=== PATIENT | male | born 1975 | race Caucasian/White ===

== ENCOUNTER 2022-06-27 15:16 | Emergency (ER) | payer OTHER, SELFPAY ==
[2022-06-27 15:27] VITALS: BP 106/90; PULSE 89; RESP 16; TEMP 36.5; O2SAT 99
--- NOTE | 2022-06-27 16:15 | ED.BACK ---
HPI - Back Pain/Injury General Chief Complaint: Back Pain/Injury Stated Complaint: Low back pain Time Seen by Provider: 06/27/22 16:15 Source: patient and RN notes reviewed Mode of arrival: ambulatory Limitations: no limitations History of Present Illness HPI Narrative: 46-year-old male presents to the [facility] with complaints of low back pain for the last 3 to 4 weeks. No treatment prior to arrival. States she does a lot of heavy lifting pushing and pulling. No direct trauma. No recent trauma to his back. Patient reports the pain has been going on for several weeks. No loss retention of bowel or bladder. No chest pain. No abdominal pain. Numbness and tingling in extremities. Related Data Allergies Allergy/AdvReac Type Severity Reaction Status Date / Time No Known Allergies Allergy Verified 06/27/22 16:19 Review of Systems Review of Systems: All systems reviewed & are unremarkable except as noted in HPI and below Constitutional: Constitutional: Reports no additional constitutional complaints, Denies chills and Denies fever(s) Eyes: Eyes: Reports no additional eye complaints ENT: Reports system reviewed and no additional complaints, except as documented Cardiovascular: Cardiovascular: Reports no additional cardiovascular complaints Respiratory: Respiratory: Reports no additional respiratory complaints Gastrointestinal: Gastrointestinal: Reports no additional gastrointestinal complaints Musculoskeletal: Musculoskeletal: Reports as per HPI and Reports back pain Integumentary/Breasts: Skin/Breast: Reports system reviewed and no additional complaints, except as docu Neurologic: Reports system reviewed and no additional complaints, except as documented Psychiatric: Psychiatric: Reports no additional psychiatric complaints Allergic/Immunologic: Allergic/Immunologic: Reports no additional allergic/immunologic complaints PMFSH Past Medical History Medical History (Updated 06/27/22 @ 19:55 by Amrita Anderson APRN) No significant medical problems Surgical History Surgical History (Updated 06/27/22 @ 19:55 by Amrita Anderson APRN) No pertinent past surgical history Social History Social History (Updated 06/27/22 @ 19:55 by Amrita Anderson APRN) Gender identity (if verbalized by the patient): Male Comments At the time of my signature, I reviewed and agree with the nursing past medical, surgical, social, and family history. There is no relevant family history pertinent to the patient complaint. Exam Const: General: healthy appearing, no acute distress and alert Nutritional Appearance: well nourished Orientation/consciousness: patient oriented x3 Limitations: no limitations HENMT: Head: normal to inspection Ears: external ears normal Eyes: General: appearance normal, both eyes and all related structures Pupils: Equal, round and reactive pupils present Neck: Neck: normal visual inspection, no lymphadenopathy and no meningeal signs Chest: Chest palpation & inspection: normal inspection of the chest Resp: Effort & Inspection: normal respiratory effort and no use of accessory muscles Auscultation: clear to auscultation bilaterally, no crackles, no rales, no rhonchi and no wheezes Cardio: Rate: regular rate Rhythm: regular rhythm GI: GI Palp: Yes Soft to palpation and No Tenderness to palpation present (GI) Back/Spine/Pelvis: Cervical Spine: normal cervical lordosis Thoracic/Lumbar Spine: thoracic and lumbar spine normal to inspection Back/spine/pelvis image: 1. Tenderness with movement. No bruising, swelling. No signs of infection, no rash. Tender with palpation throughout the entire mid lumbar area. Skin: General skin exam: normal color Rashes: no rashes Wounds: no wounds Neuro: General: patient oriented x3, moves all extremities, no meningeal signs and no focal motor deficits Cranial nerves: Yes Equal, round and reactive pupils present Speech: normal speech Gait exam (Neuro)
== END 2022-06-27 16:23 | disposition home or self-care (01) ==
PROVIDERS: Emergency Provider Nurse Practitioner
DX: S39.012A Strain of muscle, fascia and tendon of lower back, initial encounter (principal); X58.XXXA Exposure to other specified factors, initial encounter
CPT/HCPCS: 99213; G0463

== ENCOUNTER 2022-07-19 15:10 | Emergency (ER) | payer OTHER, SELFPAY ==
[2022-07-19 15:11] VITALS: BP 117/90; PULSE 111; RESP 18; TEMP 36.3; O2SAT 99
--- NOTE | 2022-07-19 15:56 | ED.BACK ---
HPI - Back Pain/Injury General Chief Complaint: Back Pain/Injury <ADAN Alba Last Filed: 07/19/22 18:05> Stated Complaint: Lower Back Pain <ADAN Alba Last Filed: 07/19/22 18:05> Time Seen by Provider: 07/19/22 15:29 <ADAN Alba Last Filed: 07/19/22 18:05> History of Present Illness HPI Narrative: Patient is a 46-year-old healthy male here for evaluation of acute on chronic left-sided low back pain for the past month. Patient states the pain is a dull ache, will occasionally radiate down his left leg. States the pain came on after he lifted a heavy furnace in his house. He was seen in an urgent care, was prescribed 800 mg ibuprofen with good relief of his pain. Patient states his prescription for this ran out, stopped taking it about 3 days ago, pain returned. He denies any saddle anesthesia, incontinence or retention of bowel or bladder, history of IV drug use, fevers. <ADAN Alba Last Filed: 07/19/22 18:05> Related Data Allergies/Adverse Reactions: Allergies Allergy/AdvReac Type Severity Reaction Status Date / Time No Known Allergies Allergy Verified 07/19/22 15:19 <ADAN Alba Last Filed: 07/19/22 18:05> Review of Systems Review of Systems: Gen: Denies fevers or chills Eyes: Denies eye pain or visual change ENT: Denies congestion Respiratory: Denies shortness of breath or cough CV: Denies chest pain or palpitations GI: Denies abdominal pain nausea, emesis or diarrhea : denies burning, urgency, frequency or hematuria Musculoskeletal: reports back pain. Neuro: Denies numbness, tingling, weakness or focal weakness Skin: Denies rash Except as documented, all other systems reviewed and negative <ADAN Alba Last Filed: 07/19/22 18:05> [facility] Past Medical History Medical History: Medical History No significant medical problems <Tracy Dowd PA-C - Last Filed: 07/19/22 18:05> Surgical History Surgical History: Surgical History No pertinent past surgical history <Tracy Dowd PA-C - Last Filed: 07/19/22 18:05> Social History Social History: Social History (Updated 06/27/22 @ 19:55 by Amrita Anderson APRN) Gender identity (if verbalized by the patient): Male <Tracy Dowd PA-C - Last Filed: 07/19/22 18:05> Exam Narrative: APPEARANCE: Well appearing, no pain in distress, well-nourished. Head: Normocephalic and atraumatic. EYES: PERRLA/EOMI, conjunctivae clear NOSE: No nasal drainage EARS: External ear normal in appearance THROAT: Oropharynx is clear. Mucous membranes are moist. NECK: Supple. No adenopathy, no masses. RESPIRATORY: Airway patent, respirations nonlabored. Clear to auscultation bilaterally, no rales, rhonchi, wheezing. CARDIOVASCULAR: Regular rate and rhythm without murmurs, rubs, or gallops. ABDOMINAL: Normoactive bowel sounds. Soft, nontender, nondistended. No rebound tenderness or guarding. MUSCULOSKELETAL: No midline tenderness to C, T, or L-spine. Straight leg raise negative bilaterally. Extremities are warm and well-perfused. Moves all extremities well. No edema. Normal gait. NEURO: Normal speech. No focal neurologic deficits. SKIN: Skin is warm and dry. No rashes. PSYCHIATRIC: Normal affect/mood. <Tracy Dowd PA-C - Last Filed: 07/19/22 18:05> Course SHIPPING ROOM SUPERVISOR/PA Physician Supervision For this patient encounter, I reviewed the SHIPPING ROOM SUPERVISOR or PA documentation, treatment plan, and medical decision making. I was available for consultation as needed. <Lucita Washington MD - Last Filed: 07/21/22 05:04> Vital Signs Vital signs: Vital Signs Temperature 97.4 F L 07/19/22 15:11 Pulse Rate 111 H 07/19/22 15:11 Respiratory Rate 18 07/19/22 15:11 Blood Pressure
[2022-07-19] MEDS: LIDOCAINE 5% PATCH 1 PATCH TRANSDERM (16:10)
[2022-07-19] MEDS: ACETAMINOPHEN 325 MG TABLET 650 MG PO (16:11)
[2022-07-19] MEDS: KETOROLAC 30 MG/ML VIAL (*BKC) IM (16:11)
[2022-07-19 16:55] VITALS: BP 133/74; PULSE 80; RESP 18; O2SAT 99
== END 2022-07-19 17:00 | disposition home or self-care (01) ==
PROVIDERS: Emergency Provider Emergency Medicine
DX: S39.012A Strain of muscle, fascia and tendon of lower back, initial encounter (principal); X50.0XXA Overexertion from strenuous movement or load, initial encounter
CPT/HCPCS: 96372; 96375; 99283; A9270; J1885